=== PATIENT | female | born 1960 | race Caucasian/White ===

== ENCOUNTER 2020-04-17 14:46 | Emergency (ER) | payer MEDICAID, SELFPAY ==
[~2020-04-17] VITALS: Ht 162.6 cm; Wt 74.8 kg
[2020-04-17 16:00] VITALS: BP_SYST 118
--- NOTE | 2020-04-17 16:23 | NUR ---
RECEIVED AND IN ROOM, STEADY GAIT, NO DISTRESS
--- NOTE | 2020-04-17 16:29 | NUR ---
Pt walked in to ER with c/o of flu like symptoms and dysuria. Pt is diaphoretic and pale. V/S stable, pt is afebrile. Currently resting in bed, will continue to monitor.
[2020-04-17] MEDS ORDERED: KETOROLAC TROMETHAMINE 60 MG/2 ML VIAL IM ONE (16:45)
--- NOTE | 2020-04-17 16:45 | NUR ---
ER Dr. Brannon at bedside examining patient.
--- NOTE | 2020-04-17 17:00 | NUR ---
Medicated with Toradol as ordered.
--- NOTE | 2020-04-17 17:10 | NUR ---
Nasal swab obtained to rule out Covid, pt tolerated well.
[2020-04-17 17:20] VITALS: BP_SYST 118
--- NOTE | 2020-04-17 17:22 | NUR ---
Patient given written and verbal discharge instructions and verbalizes understanding. ER MD discussed with patient the results and treatment provided. Patient in stable condition. ID arm band removed. Rx of Cipro and Motrin given. Patient educated on pain management and to follow up with PMD. Pain Scale 0. Opportunity for questions provided and answered. Medication side effect fact sheet provided.
== END 2020-04-17 17:20 | disposition home or self-care (01) ==
LOC: SED 14:46
DX: U07.1 COVID-19 (principal); N39.0 Urinary tract infection, site not specified
CPT/HCPCS: 81002; 96372; 99283; J1885; U0003